=== PATIENT | female | born 1965 | race Caucasian/White ===

== ENCOUNTER 2019-10-26 21:33 | Emergency (ER) | payer MEDICAID ==
[~2019-10-26] VITALS: Ht 149.9 cm; Wt 72.0 kg
--- NOTE | 2019-10-26 21:38 | NUR ---
PT BIB [facility] FOR "VOMITTING BLOOD SINCE 1900 YESTERDAY" PT STATES SHE USUALLY DRINKS A 1/2 PINT TO A PINT OF VODKA A DAY BUT TRIED TO STOP AND HAS BEEN THROWING UP BLOOD. SHE DID HOWEVER, "DRINK A FEW SIPS THIS MORNING". EMS REPORTED THAT THEY DID NOT SEE BLOOD VOMITED. PT IS DRY HEAVING INTO A EMESIS BAG. 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 WAS TREATED IN ED 2 MONTHS AGO FOR SIMILAR OCCURANCE
[2019-10-26] MEDS ORDERED: MAALOX/HYOSCYAMINE/LIDOCAINE 45 ML BTL ONE (21:45)
[2019-10-26] MEDS ORDERED: ONDANSETRON 2MG/ML, 2ML ONE (21:57)
[2019-10-26] MEDS ORDERED: MAALOX/HYOSCYAMINE/LIDOCAINE 45 ML BTL PO ONE (22:00)
[2019-10-26] MEDS ORDERED: SODIUM CHLORIDE 0.9% 1,000ML IVBOLUS ONE (22:00)
[2019-10-26] MEDS ORDERED: SODIUM CHLORIDE FLUSH 10ML SYR IVF ONE (22:00)
[2019-10-26] MEDS ORDERED: ONDANSETRON 2MG/ML, 2ML IVPush ONE (22:00)
[2019-10-26 22:06] LABS: BASOPHILS # (AUTO) 0.05 x10^3/uL (0-0.1); BASOPHILS % (AUTO) 0 % (0-1); EOSINOPHILS % (AUTO) 0 % (1-7); LYMPHOCYTES # (AUTO) 0.99 x10^3/uL (1-3.4); LYMPHOCYTES % (AUTO) 8 % (22-44); MD NO; MEAN CORPUSCULAR HEMOGLOBIN 30.8 pg (27.0-34.8); MEAN CORPUSCULAR HGB CONC 33.4 g/dL (32.4-35.8); MEAN CORPUSCULAR VOLUME 92.2 fL (80-100); MEAN PLATELET VOLUME 8.3 fL (7.4-10.4); MONOCYTES # (AUTO) 0.33 x10^3/uL (0.2-0.8); MONOCYTES % (AUTO) 3 % (2-9); NEUTROPHILS # (AUTO) 11.34 x10^3/uL (1.8-6.8); NEUTROPHILS % (AUTO) 89 % (42-75); PLATELET COUNT 169 x10^3/uL (130-400); RED BLOOD COUNT 5.58 x10^6/uL (3.82-5.3); RED CELL DISTRIBUTION WIDTH 15.2 % (9.6-15.2)
[2019-10-26 22:18] LABS: ALANINE AMINOTRANSFERASE 104 U/L (12-78); ALBUMIN 5.4 g/dL (3.4-5.0); ANION GAP 24 mmol/L (5-15); CALCIUM 10.2 mg/dL (8.5-10.1); CHLORIDE 87 mmol/L (98-107); CREATININE 1.12 mg/dL (0.55-1.02)
--- NOTE | 2019-10-26 22:19 | NUR ---
PT RESTING IN [facility]. REPORTS NAUSEA IMPROVEMENT. BLANKET PROIVDED.
[2019-10-26 22:20] LABS: ALKALINE PHOSPHATASE 156 U/L (45-117); BILIRUBIN,TOTAL 3.2 mg/dL (0.2-1.0); TOTAL PROTEIN 9.6 g/dL (6.4-8.2)
[2019-10-26] MEDS ORDERED: HYPERTENSION (22:20)
[2019-10-26] MEDS ORDERED: LORazepam 2 MG/ML, 1ML ONE (22:24)
[2019-10-26] MEDS ORDERED: METOCLOPRAMIDE 5 MG/ML, 2ML ONE (22:27)
[2019-10-26] MEDS ORDERED: METOCLOPRAMIDE 5 MG/ML, 2ML IVPush ONE (22:30)
--- NOTE | 2019-10-26 22:52 | NUR ---
REPORT GIVEN TO ELADIA ROSS
[2019-10-26] MEDS ORDERED: LORazepam 2 MG/ML, 1ML IVPush ONE (23:00)
[2019-10-27 00:17] VITALS: BP 158/101
== END 2019-10-27 00:26 | disposition home or self-care (01) ==
LOC: ED 22:32
DX: K29.20 Alcoholic gastritis without bleeding (principal); K70.10 Alcoholic hepatitis without ascites; R11.2 Nausea with vomiting, unspecified; R10.84 Generalized abdominal pain; F10.239 Alcohol dependence with withdrawal, unspecified; Y90.0 Blood alcohol level of less than 20 mg/100 ml
CPT/HCPCS: 36415; 76700; 80053; 80307; 83690; 85025; 96361; 96374; 96375; 99284; J2060; J2405; J2765; J7030

== ENCOUNTER 2020-12-09 10:09 | Emergency (ER) | payer MEDICAID ==
[~2020-12-09] VITALS: Ht 149.9 cm; Wt 78.0 kg
[~2020-12-09 10:09] MED LIST: HYPERTENSION
--- NOTE | 2020-12-09 10:19 | NUR ---
PT KARLOS FROM HOME, EMS REPORTS ETOH DETOX. LAST DRINK AT 0600, N/V SINCE LAST NIGHT THAT PT HAS NOT BEEN ABLE TO STOP. PER EMS, PT HAS HX OF DETOX SEIZURES. PT CURRENTLY NAUSEOUS BUT NOT ACTIVELY VOMITTING. PT A&O, RESPS EVEN AND UNLABORED, VSS, NADN.
[2020-12-09] MEDS ORDERED: PROCHLORPERAZINE 5 MG/ML, 2ML ONE (10:54)
[2020-12-09 10:56] LABS: MEAN CORPUSCULAR HEMOGLOBIN 32.2 pg (27.0-34.8); MEAN PLATELET VOLUME 8.3 fL (7.4-10.4); PLATELET COUNT 216 x10^3/uL (130-400); RED BLOOD COUNT 4.88 x10^6/uL (3.82-5.3); RED CELL DISTRIBUTION WIDTH 15.6 % (9.6-15.2)
[2020-12-09] MEDS ORDERED: PROCHLORPERAZINE 5 MG/ML, 2ML IVPush ONE (11:00)
[2020-12-09] MEDS ORDERED: SODIUM CHLORIDE FLUSH 10ML SYR IVF ONE (11:00)
[2020-12-09] MEDS ORDERED: SODIUM CHLORIDE 0.9% 1,000ML IVBOLUS ONE (11:00)
[2020-12-09 11:05] VITALS: BP 153/71
[2020-12-09 11:06] LABS: ALANINE AMINOTRANSFERASE 90 U/L (12-78); ALBUMIN 4.5 g/dL (3.4-5.0); ANION GAP 25 mmol/L (5-15); CALCIUM 7.8 mg/dL (8.5-10.1); CHLORIDE 99 mmol/L (98-107); CREATININE 0.92 mg/dL (0.55-1.02)
--- NOTE | 2020-12-09 11:06 | NUR ---
PT MEDICATED PER ORDER, TOLERATED WELL. FLUIDS INFUSING, ALL MONITORS ATTACHED, NSR. PT A&O, RESPS EVEN AND UNLABORED, VSS, NADN. CALL LIGHT IN REACH.
[2020-12-09 11:09] LABS: ALKALINE PHOSPHATASE 136 U/L (45-117); BILIRUBIN,TOTAL 2.3 mg/dL (0.2-1.0); TOTAL PROTEIN 8.3 g/dL (6.4-8.2)
[2020-12-09] MEDS ORDERED: MAGNESIUM CARBONATE 54 MG/5 ML ORAL SOL PO ONE (11:30)
[2020-12-09] MEDS ORDERED: MAGNESIUM OXIDE 400 MG TABLET PO SCH (11:30)
[2020-12-09] MEDS ORDERED: MAGNESIUM OXIDE 400 MG TABLET ONE (11:31)
[2020-12-09 11:40] LABS: BAND#(MANUAL) 1.18 x10^3/uL; BANDS%(MANUAL) 6 % (0-7); BASOS% (MANUAL) 1 % (0-1); LYMPH#(MANUAL) 0.78 x10^3/uL (1-3.4); LYMPHS% (MANUAL) 4 % (22-44); MONOS#(MANUAL) 0.78 x10^3/uL (0.3-2.7); MONOS% (MANUAL) 4 % (2-9); REACTIVE LYMPHS # (MANUAL) 0.39 x10^3/uL (0-0); REACTIVE LYMPHS % (MANUAL) 2 % (0-0); SEG#(MANUAL) 16.27 x10^3/uL (1.8-6.8); SEGS% (MANUAL) 83 % (42-75)
--- NOTE | 2020-12-09 11:40 | NUR ---
PO CHALLENGE TOLERATED WELL. NADN, VSS, NO VOMITTING.
[2020-12-09 11:41] LABS: <PLATELET ESTIMATE> ADEQUATE; <PLT MORPHOLOGY> NORMAL PLT MORPH; <RBC MORPHOLOGY> NORMAL
--- NOTE | 2020-12-09 11:54 | NUR ---
KELLY KELLEY AT BEDSIDE TO DISCUSS POC
--- NOTE | 2020-12-09 12:19 | NUR ---
DISCHARGE INSTRUCTIONS REVIEWED, PT EDUCATED ON FOLLOW-UP AND RETURN CRITERIA, VERBALIZED UNDERSTANDING. PT IS NOT TREMULOUS, NO N/V, CIWA SCORE 0. PT A&O, RESPS EVEN AND UNLABORED, VSS, NADN. PIV D/C'D WITH TIP INTACT. AMBULATORY TO DISCHARGE WITH STEADY GAIT, NO COMPLAINTS AT TIME OF DISCHARGE.
== END 2020-12-09 12:26 | disposition home or self-care (01) ==
LOC: ED 12:20
DX: E83.42 Hypomagnesemia (principal); R11.2 Nausea with vomiting, unspecified; F10.229 Alcohol dependence with intoxication, unspecified; Y90.0 Blood alcohol level of less than 20 mg/100 ml
CPT/HCPCS: 36415; 80053; 80320; 83690; 83735; 85025; 96361; 96374; 99283; J0780; J7030; G0480